=== PATIENT | female | born 1995 | race Caucasian/White ===

== ENCOUNTER 2021-02-02 21:07 | Emergency (ER) | payer MEDICAID, OTHER ==
[~2021-02-02] VITALS: Ht 152.4 cm; Wt 52.2 kg
[2021-02-02 21:09] VITALS: BP 147/84
== END 2021-02-02 23:29 | disposition home or self-care (01) ==
LOC: ER 21:13
DX: S40.822A Blister (nonthermal) of left upper arm, initial encounter (principal); B95.8 Unspecified staphylococcus as the cause of diseases classified elsewhere; X58.XXXA Exposure to other specified factors, initial encounter; Y93.89 Activity, other specified; Y92.89 Other specified places as the place of occurrence of the external cause; Y99.8 Other external cause status

== ENCOUNTER 2022-08-08 22:02 | Emergency (ER) | payer MEDICAID ==
[~2022-08-08] VITALS: Ht 152.4 cm; Wt 55.3 kg
[2022-08-08 22:02] VITALS: BP 132/84
[2022-08-08] MEDS ORDERED: TETRACAINE HCL 0.5% OPTH(EYE) SOLN 4ML RIGHTEYE ONE (23:15)
[2022-08-09] MEDS ORDERED: IBUPROFEN 800 MG TAB PO ONE (00:30)
[2022-08-09] MEDS ORDERED: CIP03OS RIGHTEYE (01:08)
[2022-08-09] MEDS ORDERED: HYDR-4902 PO (01:08)
== END 2022-08-09 01:37 | disposition home or self-care (01) ==
LOC: ER 22:02
DX: S05.01XA Injury of conjunctiva and corneal abrasion without foreign body, right eye, initial encounter (principal); X58.XXXA Exposure to other specified factors, initial encounter; Y93.89 Activity, other specified; Y92.89 Other specified places as the place of occurrence of the external cause; Y99.8 Other external cause status